=== PATIENT | male | born 1980 | race African-American/Black ===

== ENCOUNTER 2016-09-24 17:21 | Emergency (ER) | payer OTHER ==
--- NOTE | 2016-09-24 17:59 | UCPHY ---
H & P Time Seen by Provider: 09/24/16 17:58 Patient Type: New HPI/ROS: CHIEF COMPLAINT: Cough, congestion. HISTORY OF PRESENT ILLNESS: This is a 36-year-old otherwise healthy male who presents with upper respiratory tract infection symptoms such as rhinorrhea and postnasal drip as well as a mild, productive cough and nasal congestion for the past 4 days. He is unable to distinguish whether this is a productive nature from postnasal drip versus a cough per se. This has been causing him difficulty breathing. The cough wakes him up but he is still able to fall asleep. He admits associated frontal sinus pain. He denies fever but does note feeling diaphoretic and hot. He denies ear pain, myalgia. He has been treating with Aleve Cold and Sinus, Mucinex, and Robitussin. 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 He does see himself being here for the next 4 weeks although will on occasion go back and forth to [place]. He is working with the public thus he has a fair amount of exposure but nothing with particular close proximity. He had a recent physical exam that is June. There has been no discussion the past of him having mild hypertension. He cannot recall his last chest x- ray. He is unaware of his fast heartbeat. REVIEW OF SYSTEMS: Constitutional: No fever, no chills. Eyes: No diplopia, or eye discharge. ENT: No sore throat. Cardiovascular: No chest pain, no palpitations, or awareness of his tachycardia Respiratory: As above. Gastrointestinal: No nausea vomiting or diarrhea. No abdominal pain. Genitourinary: No hematuria or frequency. Musculoskeletal: No back pain. Skin: No rashes. Neurological: No headache. 10 point ROS otherwise negative Past Medical/Surgical History: Denies. Social History: Automotive Manufacturer, lives in [place]. Physical Exam: General Appearance: Alert, no distress. Afebrile. Normal phonation. No respiratory distress. Eyes: Pupils equal and round no pallor or injection. No icterus ENT, Mouth: Mucous membranes moist. Pharynx not erythematous and without exudate. TM Clear. Neck: No adenopathy. Supple. No JVD. Trachea in midline. Respiratory: There are no retractions, lungs are clear to auscultation. Cardiovascular: Regular rate and rhythm, tachycardic in the 105-115 range. No murmur. Abdomen: Soft and nontender, no masses, bowel sounds normal. Femoral pulses equal. Neurological: Ox3. No motor weakness. Sensation intact. Gait nl. Skin: Warm and dry, no rashes. Musculoskeletal: No joint swelling. Extremities: No edema. Homans sign negative. No cords. Psychiatric: Patient is oriented X 3, there is no agitation Constitutional: Initial Vital Signs Temperature (C) 37.0 C 09/24/16 18:30 Heart Rate 116 H 09/24/16 18:30 Respiratory Rate 20 09/24/16 18:30 Blood Pressure 152/92 H 09/24/16 18:30 O2 Sat (%) 93 09/24/16 18:30 O2 Delivery Mode Room Air Allergies/Adverse Reactions: No Known Allergies Allergy (Unverified 09/24/16 18:27) Home Medications: Medication Instructions Recorded Azithromycin [Zithromax] 250 mg PO DAILY #6 tab 09/24/16 Lisinopril 10 mg PO DAILY #30 tablet 09/24/16 Medical Decision Making - Diagnostics EKG Interpretation: 12-LEAD EKG: Please see the full report in [facility]. My interpretation: Sinus tachycardia, rate 107. Left axis deviation. LVH with secondary repolarization abnormality. Anterior Q waves, possibly due to LVH. Imaging: Two-view chest. Interpreted by radiologist. Films reviewed by me. X-ray positive for bilateral pneumonia. ED Course/Re-evaluation: Patient's heart rate noted to be 110 on arrival. However, he is afebrile at 37.0 , so an EKG was ordered. This EKG to noted distinct EKG changes both LVH with an R wave amplitude in aVL of 18. There is moderate left axis deviation. There is some anterior Q-waves present is suggestive of the LVH as well. Minor ST segment changes V5 and V6 compatible with LV dysfunction - interpreted by me contemporaneously. No old EKGs available for review. Review of the EKG changes suggestive a chest x-ray to check for cardiac enlargement as well as pneumonia. The chest x-ray showed diffuse interstitial pattern however I did not find it to be that critically sick in the 1st place. Furthermore most of his clinical story was that of an upper respiratory tract infection and a sinus dysfunction. I wonder if perhaps were seen is a manifestation of sarcoid, though that would only series to be entertained if he did not clear on a course of Zithromax antibiotic which have explained to him at length. Laboratory studies showed: normal troponin Normal electrolytes Number liver studies Normal hemogram - without leukocytosis as would be expected pneumonia. Thereby I would wonder about sarcoid given interstitial changes as above noted. I have explained to him at length this time that he gets a whole slew of medical problems clarify over the next month: Hypertension-will start him on 10 mg of lisinopril URI with pneumonia-Zithromax with recommending chest x-ray follow-up in 10 days time EKG evidence of LVH but no chest x-ray evidence of cardiomegaly. Recommend PCP to consider echocardiogram. He will return home to [place] often on this month thus he will be able to have these evaluated Differential Diagnosis: Differential diagnosis includes but not limited to: Chronic uncontrolled hypertension, cardiomegaly, left ventricular hypertrophy, sarcoid disease, acute pneumonia, URI, sinusitis, sarcoid disease - Data Points Laboratory Results: Laboratory Results 09/24/16 19:05 09/24/16 19:05 09/24/16 19:05 WBC 5.86 10^3/uL (3.80-9.50) RBC 4.97 10^6/uL (4.40-6.38) Hgb 16.1 g/dL (13.7-17.5) Hct 47.0 % (40.0-51.0) MCV 94.6 fL (81.5-99.8) MCH 32.4 pg (27.9-34.1) MCHC 34.3 g/dL (32.4-36.7) RDW 12.3 % (11.5-15.2) Plt Count 185 10^3/uL (150-400) MPV 10.8 fL (8.7-11.7) Neut % (Auto) 38.8 L % (39.3-74.2) Lymph % (Auto) 43.3 % (15.0-45.0) [place] % (Auto) 12.6 % (4.5-13.0) Eos % (Auto) 4.6 % (0.6-7.6) Baso % (Auto) 0.5 % (0.3-1.7) Nucleat RBC Rel Count 0.0 % (0.0-0.2) Absolute Neuts (auto) 2.27 10^3/uL (1.70-6.50) Absolute Lymphs (auto) 2.54 10^3/uL (1.00-3.00) Absolute Monos (auto) 0.74 10^3/uL (0.30-0.80) Absolute Eos (auto) 0.27 10^3/uL (0.03-0.40) Absolute Basos (auto) 0.03 10^3/uL (0.02-0.10) Absolute Nucleated RBC 0.00 10^3/uL (0-0.01) Immature Gran % 0.2 % (0.0-1.1) Immature Gran # 0.01 10^3/uL (0.00-0.10) VBG Lactic Acid 1.1 mmol/L (0.7-2.1) Sodium 143 mEq/L (134-144) Potassium 4.3 mEq/L (3.5-5.2) Chloride 102 mEq/L (97-110) Carbon Dioxide 24 mEq/l (22-31) Anion Gap 17 mEq/L (8-16) BUN 15 mg/dL (7-23) Creatinine 1.0 mg/dL (0.7-1.3) Estimated GFR > 60 Glucose 93 mg/dL (70-100) Calcium 9.4 mg/dL (8.5-10.4) Magnesium 2.0 mg/dL (1.6-2.3) Total Bilirubin 0.7 mg/dL (0.1-1.4) Conjugated Bilirubin 0.5 mg/dL (0.0-0.5) Unconjugated Bilirubin 0.2 mg/dL (0.0-1.1) AST 33 IU/L (17-59) ALT 56 IU/L (21-72) Alkaline Phosphatase 62 IU/L (38-126) Troponin I < 0.012 ng/mL (0-0.034) Total Protein 8.0 g/dL (6.3-8.2) Albumin 4.2 g/dL (3.5-5.0) Medications Given: Discontinued Medications Azithromycin (Zithromax) 500 mg PO EDNOW ONE PRN Reason: Protocol Stop: 09/24/16 20:46 Last Admin: 09/24/16 20:52 Dose: 500 mg Departure - Departure Disposition: Home, Routine, Self-Care Clinical Impression: Pneumonia, Sinusitis, acute, URI, acute, Cardiomegaly Condition: Good Instructions: Pneumonia (ED) Additional Instructions: Take the antibiotic as prescribed for the full course. Extra fluids You are okay to take your Aleve decongestant Start the lisinopril tomorrow Continue the Zithromax for 4 days Call your family physician tomorrow regarding follow-up. You of the following issues:-pneumonic changes seen on chest x-ray though clinical course is most consistent with sinusitis. Furthermore, EKG evidence suggests cardiomegaly. While in the area, did not go up into the mountains or [place] due to her underlying illness Return to Urgent Care or the emergency department if your condition worsens significantly. Follow up with your primary care provider when you return home for reevaluation of your high blood pressure. It was measured today at 152/92. Referrals: OUT OF STATE,. [Primary Care Provider] - As per Instructions Prescriptions: Lisinopril 10 mg PO DAILY #30 tablet Azithromycin [Zithromax] 250 mg PO DAILY #6 tab - PQRS PQRS Measurement: Not applicable Report Scribed for: Mike Amezquita Report Scribed by: Good Jessica Date of Report: 09/24/16 Time of Report: 18:10
[2016-09-24 18:32] VITALS: TEMP 98.6
--- NOTE | 2016-09-24 18:37 | CPEKG ---
Heart Rate: 107 RR Interval: 561 P-R Interval: 144 QRSD Interval: 102 QT Interval: 336 QTC Interval: 449 P [place]: 66 QRS [place]: -33 T Wave [place]: 127 EKG Severity - ABNORMAL ECG - EKG Impression: SINUS TACHYCARDIA EKG Impression: LEFT AXIS DEVIATION EKG Impression: LVH WITH SECONDARY REPOLARIZATION ABNORMALITY EKG Impression: ANTERIOR Q WAVES, POSSIBLY DUE TO LVH Electronically Signed By: Mike Amezquita 25-Sep-2016 00:12:20
--- NOTE | 2016-09-24 18:38 | DX ---
Chest, Two Views at 1825 hours History: Cough, shortness of breath. Comparison: None. Findings: Cardiac silhouette is within normal range. Bilateral diffuse interstitial opacities especia lly bilateral lower lobes but also in the anterior segments of the upper lobes. No pleural effusion. No pneumothorax. IMPRESSION: Bilateral pneumonia.
[2016-09-24 19:14] LABS: % IMMATURE GRANULYOCYTES 0.2 % (0.0-1.1); ABSOLUTE IMMATURE GRANULOCYTES 0.01 10^3/uL (0.00-0.10); ADD DIFF? NO; ADD MORPH? NO; ADD SCAN? NO; ATYPICAL LYMPHOCYTE FLAG 40 (0-99); FRAGMENT RBC FLAG 0 (0-99); HEMOGLOBIN 16.1 g/dL (13.7-17.5); LEFT SHIFT FLG 0 (0-99); LIPEMIA HEMOLYSIS FLAG 90 (0-99); MEAN CELL HEMOGLOBIN 32.4 pg (27.9-34.1); MEAN CELL HEMOGLOBIN CONCENTR. 34.3 g/dL (32.4-36.7); MEAN CELL VOLUME 94.6 fL (81.5-99.8); MEAN PLATELET VOLUME 10.8 fL (8.7-11.7); PLATELET CLUMPS FLAG 0 (0-99); PLATELET COUNT 185 10^3/uL (150-400); RED BLOOD CELL COUNT 4.97 10^6/uL (4.40-6.38); RED CELL DISTRIBUTION WIDTH 12.3 % (11.5-15.2)
[2016-09-24 19:29] LABS: ALANINE AMINOTRANSFERASE 56 IU/L (21-72); ALBUMIN 4.2 g/dL (3.5-5.0); ALKALINE PHOSPHATASE 62 IU/L (38-126); ASPARTATE AMINOTRANSFERASE 33 IU/L (17-59); BILIRUBIN,TOTAL 0.7 mg/dL (0.1-1.4); BILIRUBIN-CONJUGATED 0.5 mg/dL (0.0-0.5); BILIRUBIN-UNCONJUGATED 0.2 mg/dL (0.0-1.1)
[2016-09-24 19:39] LABS: TROPONIN I < 0.012 ng/mL (0-0.034)
[2016-09-24 20:05] LABS: ANION GAP 17 mEq/L (8-16); CALCIUM 9.4 mg/dL (8.5-10.4); CARBON DIOXIDE 24 mEq/l (22-31); CHLORIDE 102 mEq/L (97-110); GLOMERULAR FILTRATION RATE > 60; GLUCOSE 93 mg/dL (70-100); POTASSIUM 4.3 mEq/L (3.5-5.2); SODIUM 143 mEq/L (134-144)
[2016-09-24] MEDS ORDERED: AZITHROMYCIN 250 MG TAB PO ONE (20:45)
[2016-09-24 23:13] VITALS: BP 160/91; PULSE 108; RESP 18; O2SAT 98
== END 2016-09-24 21:11 | disposition home or self-care (01) ==
LOC: CED 17:21
DX: J18.9 Pneumonia, unspecified organism (principal); J32.9 Chronic sinusitis, unspecified; J06.9 Acute upper respiratory infection, unspecified; I51.7 Cardiomegaly
CPT/HCPCS: 71020-PO; 80048-PO; 80076-PO; 83605-PO; 83735-PO; 84484-PO; 85025-PO; 93010-PO; 99203-PO; G0463-PO